=== PATIENT | male | born 1955 | race Caucasian/White ===

== ENCOUNTER → 2017-07-10 13:17 | Outpatient (CLI) | payer OTHER, MEDICARE, SELFPAY ==
[2017-06-26 17:31] VITALS: BMI 21.9
--- NOTE | 2017-07-10 13:19 | RAD_ITS ---
STUDY: X-RAY - RIGHT CLAVICLE REASON FOR EXAM: Male, 61 years old. Postop TECHNIQUE: 2 view(s) of the clavicle. COMPARISON: X-rays of the right clavicle on June 26, 2017. FINDINGS: Again noted is a fracture of the distal end of the clavicle, stable in alignment since last examination. The patient is status post reconstruction of the coracoclavicular ligaments Normal acromioclavicular articulation. Normal visualized sternoclavicular articulation. Normal visualized pulmonary apex. RAD/Clavicle IMPRESSION: Healing fracture of the distal clavicle, stable since last examination. Status post reconstruction of the coracoclavicular ligaments Electronically Signed: Oscar Rivas MD, FACR at 14:48 EST , Service support ,
== END ==
PROVIDERS: Family Provider Family Medicine; PCP Family Medicine; Visit Provider Orthopaedic Surgery
DX: S42.031A Displaced fracture of lateral end of right clavicle, initial encounter for closed fracture (principal); X58.XXXA Exposure to other specified factors, initial encounter; Y93.9 Activity, unspecified; Y92.9 Unspecified place or not applicable; Y99.9 Unspecified external cause status
CPT/HCPCS: 73000

== ENCOUNTER → 2017-08-11 12:44 | Outpatient (CLI) | payer OTHER, MEDICARE, SELFPAY ==
--- NOTE | 2017-08-11 12:48 | RAD_ITS ---
STUDY: X-RAY - RIGHT CLAVICLE REASON FOR EXAM: Fracture. TECHNIQUE: 2 view(s) of the clavicle. COMPARISON: Radiographs 07/10/2017 and 06/26/2017. FINDINGS: There is a healing fracture of the distal clavicle without interval change. There are postoperative changes from coracoclavicular ligament reconstruction. There is no widening of the acromioclavicular articulation. Normal visualized sternoclavicular articulation. Normal visualized pulmonary apex. RAD/Clavicle IMPRESSION: Healing fracture of the distal clavicle without interval change. Electronically Signed: Archie Johns MD at 13:24 EST Tel , Service support ,
== END ==
PROVIDERS: Family Provider Family Medicine; PCP Family Medicine; Visit Provider Orthopaedic Surgery
DX: S42.031A Displaced fracture of lateral end of right clavicle, initial encounter for closed fracture (principal); X58.XXXA Exposure to other specified factors, initial encounter; Y93.9 Activity, unspecified; Y92.9 Unspecified place or not applicable; Y99.9 Unspecified external cause status
CPT/HCPCS: 73000

== ENCOUNTER 2017-09-17 08:00 | Outpatient (RCR) | payer MEDICARE, SELFPAY ==
--- NOTE | 2017-08-14 11:20 | HP.PTEVAL_ITS ---
Patient's Visit Information AMERICO ARRIOLA is a 61 year old M referred to Physical Therapy by DO HAYLIE Piedra with a diagnosis of R distal clavical fx with coracoclavicular ligament reconstruction. Date of Evaluation: 08/14/17 Physical Therapist: Román Coreas - Visit Plan Frequency: 2-3x /Week Duration: 6-8 weeks Plan: Start with AAROM activities. Progress via protocol. May use modalities if needed PRN. - Subjective Subjective: Pt. is here today for inital evaluation with diagnosis of R distal clavical fx with coracoclavicular ligament reconstruction. Pt. also has a history of L sided stroke with R sided weakness. Pt. has surgery on 06/16/17. Pt. reports hurting his arm when his dog pulled him over at the park. He trialed conservative treatment, but ultimately had to have surgery. Pt. reports no pain currently and has been outs of sleep for ~ 1 weeks at this point. Pt. reports being very active in gym with cardio fitness current, goes x6 per week. Pt. reports being compliant with pendulums and arm exercises at home. He did divulge lifting 30lbs over his head with his R arm yesterday, I discouraged him to doing so right now. Pt. reports no issues with sleeping and no issues with most ADLs, I just feels weak now. Pt. is pleased with progress thus far. Pt is hopeful to get back to all previous activies with issues. - Pain R shoulder Pain Intensity (Out of 10): 0 Pain Intensity Range: 0, 2 - Objective POSTURE: Pt. stands without sling, normal shoulder height, no step off on R side. Pt. has R arm in slight gaurded positioning. Pt has FH posture with increased thoracic kyphosis. PALPATION: Pt. has well healing incision. Pt. has no signs of infection. Pt. has mild tenderness along distal clavicle and near coracoid process. No visible edema noted. NEUROLOGICAL: Pt. has decreased sensation to light touch of R UE, Pt. reports present since stroke, no changes in sensation since surgery. Normal on LUE. Pt. has 2+ biceps and triceps DTR bilaterally. ROM: AROM- L shoulder- flexion 180deg, abd 180deg, functional ER C6, functional IR T10. R shoulder- AROM- flexion 170deg, abd 168deg, functional ER C4 (abherrant motion), Functional IR L5 (mild increase in symptoms). MMT- LUE- wrist 5/5 throughout; elbow- 5/5 throughout; shoulder 5/5 throughout. RUE - wrist 4/5 increased difficulty with finger extension and wrist extension; elbow 5/5 throughout; shoulder- flexion 4/5, abd 4/5, ext 4/5, ER 4/5, IR 5/5. - Goals Goal 1:: Pt. to be I with HEP. Goal Time Frame: 4-6 Weeks Goal 2:: Pt. to have increased R shoulder ROM symmetrical to L without reports of increased symptoms. Goal Time Frame: 4-6 Weeks Goal 3:: Pt. to have increased R shoulder strength by 1/2 grade throughout effected musculature allowing for increased stability of R shoulder with all ADLs and recreational activities. Goal Time Frame: 6-8 Weeks Goal 4:: Pt. to resume all gym related exercises without increase in symptoms of R shoulder. Goal Time Frame: 6-8 Weeks Goal 5:: Pt. report no issues with all ADLs and house work activities. - Rehabilitation Potential Physical Therapy Diagnosis: Pt. presents with R distal clavical fx with coraco clavicular ligament reconstruction with subsequent R shoulder hypomobility, and decreased R shoulder strength. Pt. would benefit from PT to increase AROM, PROM and progress to strengthening of RUE allowing for increased ability to complete all ADLs and gym related activities without issues. - Anticipated Interventions Patient/Client Instruction: Educate patient on: Condition, Plan of Care, Risk Factors, Benefits of Fitness Program For the Purpose of:: To foster healthy habits, To improve decision making, To facilitate caregiver knowledge, To improve self management, To prevent re-injury , To improve ability to perform tasks related to life management, To improve tolerance to ADL's Therapeutic Exercise to Include: Strength training, Power training, Postural training, Flexibilty training, Passive ROM, Active ROM, Dynamic Lumbar Stabilization, Scapular Strength/Stabilization For the Purpose of:: To decrease pain, To increase ROM, To improve nutrient delivery to tissue, To increase oxygenation perfusion, To improve muscle performance and motor function, To improve ability to perform ADL's, To increase tolerance to activity/condition/position, To improve performance and independence with ADL's, To improve ability of physical actions for home/ community/work/leisure, To improve gait and locomotor functions, To decrease soft tissue restriction, To increase flexibility/ROM Manual Therapy Techniques to Include: Mobilization, Passive ROM, Soft tissue mobilization For the Purpose of:: To decrease pain, To increase ROM, To improve nutrient delivery to tissue, To increase oxygenation perfusion, To improve muscle performance and motor function IF ES: Yes Cryotherapy (ice pack, ice massage): Yes Thermo therapy (hot pack): Yes For the Purpose of:: To decrease pain, To decrease swelling/inflammation, To increase ROM Thank you for the opportunity to evaluate your patient. For Medicare and Medicare HMO plans, please review the plan of care and approve it. It will need to be FAXED BACK to us at [phone] for Medicare purposes. Please let me know if there are questions or concerns regarding this plan of care. Physician Signature: Date:
--- NOTE | 2017-08-14 13:50 | HP.OTEVAL_ITS ---
Patient's Visit Information AMERICO ARRIOLA is a 61 year old M, referred to Occupational Therapy by Pranay Cottrell DO,MTNILA, with a diagnosis of Hx of R side stroke. Date of Evaluation: 08/14/17 Occupational Therapist: Fang Valdes - Subjective Subjective: Pt seen for initial occupational therapy evaluation for increasing R under ground miner strength and coordination to assist with BADLs/IADLs/hobbies. Pt had fall on ice while walking dog and had fx R distal clavical with coracoclavicular ligament reconstruction and had a stroke L side affecting his R side 14 yrs ago. Pt states he has decreased R hand under ground miner strength. Pt lives with his spouse and is independent with BADLs/IADLs other than his spouse has to assist with grooming/hygiene tasks of clipping his finger nails secondary to increased tone and decreased strength and coordiantion of R hand. - Objective Objective/Observation: Pt demo decreased R under ground miner strength and coordination. - ROM ROM Comments: Pt able to make composite fist R hand. Pt demo decreased finger extension MP joints middle finger -50, ring finger -55 R hand. - Strength Receiver: R 20#, L 90# Tripod Pinch: R 12#, L 22# Strength Comments: Pt demo decreased R hand strength - Edema Other: No edema noted - DASH-Disabilities of Arm, Shoulder& Hand DASH Sum: 98 - Goals Goal:: Pt will progress with R hand under ground miner strength by 50# to assist with functional living skills and hobbies. Goal:: Pt will progress with R hand coordination tasks to assist with all grooming/hygiene skills with minimal assist. Goal:: pt will be educated on R hand strengthening HEP with good understanding and demo 100%x. - Rehabilitation General Assessment: Pt demo decreased R hand under ground miner strength and coordination indicating a need for skilled occupational therapy services to increase R hand strength and coordination to assist w/ hobbies and BADLs/IADLs. Rehabilitation Potential: Good - Anticipated Interventions Anticipated Interventions: A/AAROM/PROM, Strengthening, Modalities, Fine Motor Coord/Manish, ADL Training, Home Program - Visit Plan Frequency: 1x/Week Duration: 4 Weeks General Plan: Increase R hand under ground miner strength and coordination, educate on R UE HEP to increase independence with hobbies, ADLS/IADLS. TEXT: Thank you for the opportunity to evaluate your patient. For Medicare and Medicare HMO plans, please review the plan of care and approve it. It will need to be FAXED BACK to us at [phone] for Medicare purposes. Please let me know if there are questions or concerns regarding this plan of care. Physician Signature: Date:
--- NOTE | 2017-09-15 16:34 | HP.PTREVAL_ITS ---
Pranay Cottrell DO, It has been my pleasure to treat AMERICO ARRIOLA over the last 12 visits for R distal clavical fx with coracoclavicular ligament reconstruction. Please see the progress note below for an update on the physical therapy plan of care! Subjective: Pt. reports 'I have been doing pretty well. Pt. is to see his physician next week. Pt. reports being HEP compliant. No pain currently. Objective/Function: AROM- R shoulder- flexion 155deg abherrant motion- pt. reports was present prior to surgery. ABD 140deg abherrant motion. Pt. reports no pain with all testing. Pt. continues to progress with PROM, AROM and stability exercises. He has progressed to quadriped exercises for R shoulder stability without adverse reaction. Pt. does report some shoulder crepitus with rotational motions. Pt. has no pain with all activities. Pt. is back to all gym exercises, but told to scale to light wt's. Pt. to follow up with physician next week. Plan Plan: Start with AAROM activities. Progress via protocol. May use modalities if needed PRN. Goals Goal 1:: Pt. to be I with HEP. Goal Time Frame: 4-6 Weeks Goal Progress: Goal Met Goal 2:: Pt. to have increased R shoulder ROM symmetrical to L without reports of increased symptoms. Goal Time Frame: 4-6 Weeks Goal 3:: Pt. to have increased R shoulder strength by 1/2 grade throughout effected musculature allowing for increased stability of R shoulder with all ADLs and recreational activities. Goal Time Frame: 6-8 Weeks Goal Progress: Progressing Goal 4:: Pt. to resume all gym related exercises without increase in symptoms of R shoulder. Goal Time Frame: 6-8 Weeks Goal Progress: Progressing Goal 5:: Pt. report no issues with all ADLs and house work activities. Goal Progress: Goal Met Anticipated Interventions Patient/Client Instruction: Educate patient on: Condition, Plan of Care, Risk Factors, Benefits of Fitness Program For the Purpose of:: To foster healthy habits, To improve decision making, To facilitate caregiver knowledge, To improve self management, To prevent re-injury , To improve ability to perform tasks related to life management, To improve tolerance to ADL's Therapeutic Exercise to Include: Strength training, Power training, Postural training, Flexibilty training, Passive ROM, Active ROM, Dynamic Lumbar Stabilization, Scapular Strength/Stabilization For the Purpose of:: To decrease pain, To increase ROM, To improve nutrient delivery to tissue, To increase oxygenation perfusion, To improve muscle performance and motor function, To improve ability to perform ADL's, To increase tolerance to activity/condition/position, To improve performance and independence with ADL's, To improve ability of physical actions for home/ community/work/leisure, To improve gait and locomotor functions, To decrease soft tissue restriction, To increase flexibility/ROM Manual Therapy Techniques to Include: Mobilization, Passive ROM, Soft tissue mobilization For the Purpose of:: To decrease pain, To increase ROM, To improve nutrient delivery to tissue, To increase oxygenation perfusion, To improve muscle performance and motor function IF ES: Yes Cryotherapy (ice pack, ice massage): Yes Thermo therapy (hot pack): Yes For the Purpose of:: To decrease pain, To decrease swelling/inflammation, To increase ROM Please do not hesitate to contact me at [phone] by phone or Fax: if you have questions or concerns regarding this new plan of care! Sincerely, Román Coreas
--- NOTE | 2017-10-15 13:14 | HP.OT.NRP ---
HP - Discharge Summary - Patient Information AMERICO ARRIOLA was seen in my office for initial evaluation on 08/14/17. The following Plan of Care was established for this patient: Initial Frequency: 1x/Week Initial Duration: 4 Weeks Plan: cont to decrease tone R hand and increase cone chocolate dipper strength - Anticipated Interventions Anticipated Interventions: A/AAROM/PROM, Strengthening, Modalities, Fine Motor Coord/Manish, ADL Training, Home Program This patient was last seen in our office 09/17/17. Pertinent comments regarding their Occupational therapy will appear below: Pt to d/c from OT services, non returning pt. Pt was working on increasing cone chocolate dipper strength R hand with prolonged stretching and weightbearing activities of R hand to decrease tone. Education on exercises, exercise equipment and stretches to complete at home. At this point I will be discontinuing this patient from occupational therapy. I would be happy to see this patient again in the future if found appropriate by the physician. Thank you! Fang Valdes
--- NOTE | 2017-10-15 14:19 | HP.OT.NRP ---
HP - Discharge Summary - Patient Information AMERICO ARRIOLA was seen in my office for initial evaluation on 08/14/17. 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 Pertinent comments regarding their Occupational therapy will appear below: Pt to d/c from OT services, non returning pt. 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 Education on exercises, digiflex hand strengthener for R hand and stretches to complete at home. At this point I will be discontinuing this patient from occupational therapy. I would be happy to see this patient again in the future if found appropriate by the physician. Thank you! Fang Valdes
--- NOTE | 2018-01-27 13:51 | HP.PT.NRP ---
HP - Discharge Summary (1) - Patient Information AMERICO ARRIOLA was seen in my office for initial evaluation on 08/14/17. The following Plan of Care was established for this patient: Initial Frequency: 2-3x /Week Initial Duration: 6-8 weeks - Anticipated Interventions Patient/Client Instruction: Educate patient on: Condition, Plan of Care, Risk Factors, Benefits of Fitness Program For the Purpose of:: To foster healthy habits, To improve decision making, To facilitate caregiver knowledge, To improve self management, To prevent re-injury, To improve ability to perform tasks related to life management, To improve tolerance to ADL's Therapeutic Exercise to Include: Strength training, Power training, Postural training, Flexibilty training, Passive ROM, Active ROM, Dynamic Lumbar Stabilization, Scapular Strength/Stabilization For the Purpose of:: To decrease pain, To increase ROM, To improve nutrient delivery to tissue, To increase oxygenation perfusion, To improve muscle performance and motor function, To improve ability to perform ADL's, To increase tolerance to activity/condition/position, To improve performance and independence with ADL's, To improve ability of physical actions for home/community/work/leisure, To improve gait and locomotor functions, To decrease soft tissue restriction, To increase flexibility/ROM Manual Therapy Techniques to Include: Mobilization, Passive ROM, Soft tissue mobilization For the Purpose of:: To decrease pain, To increase ROM, To improve nutrient delivery to tissue, To increase oxygenation perfusion, To improve muscle performance and motor function IF ES: Yes Cryotherapy (ice pack, ice massage): Yes Thermo therapy (hot pack): Yes For the Purpose of:: To decrease pain, To decrease swelling/inflammation, To increase ROM This patient was last seen in our office 09/12/17. Pertinent comments regarding their Physical therapy will appear below: Pt. was seen in PT for his R distal clavicle reconstruction. Pt. progressed well with PT. At our last visit he was doing very well. He was to continue with exercises on his own and follow up with PT if needed. Pt. has not returned to PT in ~4 months and will be DC from PT at this point in time. At this point I will be discontinuing this patient from physical therapy. I would be happy to see this patient again in the future if found appropriate by the physician. Thank you! Román Coreas
== END 2017-09-17 19:00 | disposition home or self-care (01) ==
LOC: OT 08:00
PROVIDERS: Family Provider Family Medicine; PCP Family Medicine; Visit Provider Orthopaedic Surgery
DX: S42.031D Displaced fracture of lateral end of right clavicle, subsequent encounter for fracture with routine healing (principal); Z86.73 Personal history of transient ischemic attack (TIA), and cerebral infarction without residual deficits
CPT/HCPCS: 97110; 97140; 97161; 97165; 97168; G8987; G8988

== ENCOUNTER → 2017-09-22 13:00 | Outpatient (CLI) | payer MEDICARE, SELFPAY ==
--- NOTE | 2017-09-22 13:02 | RAD_ITS ---
STUDY: X-RAY - RIGHT CLAVICLE REASON FOR EXAM: Male, 62 years old. Fracture TECHNIQUE: 2 view(s) of the clavicle. COMPARISON: August 11, 2017 FINDINGS: Stable postoperative change of the distal clavicle with partial healing of fracture adjacent to the acromioclavicular articulation. The fracture line remains apparent. Normal visualized sternoclavicular articulation. Normal visualized pulmonary apex. RAD/Clavicle IMPRESSION: Stable incompletely united fracture of distal clavicle. Electronically Signed: Igor Walker MD at 17:24 EDT , Service support ,
== END ==
PROVIDERS: Family Provider Family Medicine; PCP Family Medicine; Visit Provider Orthopaedic Surgery
DX: S42.031A Displaced fracture of lateral end of right clavicle, initial encounter for closed fracture (principal); X58.XXXA Exposure to other specified factors, initial encounter; Y93.9 Activity, unspecified; Y92.9 Unspecified place or not applicable; Y99.9 Unspecified external cause status
CPT/HCPCS: 73000

== ENCOUNTER → 2017-11-27 13:52 | Outpatient (CLI) | payer MEDICARE, SELFPAY ==
[2017-11-27 16:29] LABS: PSA,Total - Annual Screen 0.66 ng/mL (0.00-4.00)
== END ==
PROVIDERS: Family Provider Family Medicine; PCP Family Medicine; Visit Provider Urology
DX: Z12.5 Encounter for screening for malignant neoplasm of prostate (principal)
CPT/HCPCS: 36415; 84153; G0103

== ENCOUNTER → 2018-07-27 07:29 | Outpatient (CLI) | payer MEDICARE, SELFPAY ==
[2018-07-27 08:53] LABS: Absolute Lymphocyte Count 0.89 X10^3/ul (0.83-4.51); Absolute Neutrophil Count 1.9 X10^3/uL (2.0-7.7); Basophil# 0.03 X10^3/uL; Basophil% 0.9 % (0-1); Eosinophil# 0.14 X10^3/uL; Eosinophils% 4.3 % (0-5); Hemoglobin 12.8 g/dl (13.0-16.5); Lymphocyte # 0.89 X10^3/ul (4.0); Lymphocyte % 27.5 % (19-41); Mean Corp Hgb Conc 32.8 g/gl (32-36); Mean Corpuscular Volume 100.5 fL (80-94); Mean Platelet Vol. 9.7 fl (6.2-12.0); Monocyte% 9.3 % (0-10); Neutrophil # 1.88 X10^3/uL (2.7-7.7); Platelet Count 208 K/mm3 (150-450); RBC Distribution Width CV 12.8 % (11.6-14.6); RBC Distribution Width SD 45.8 fl (35.1-43.9); Red Blood Count 3.88 M/mm3 (4.6-6.2); White Blood Count 3.2 K/mm3 (4.4-11.0)
[2018-07-27 09:03] LABS: POSITIVE COUNT NO; POSITIVE DIFFERENTIAL NO; POSITIVE MORPHOLOGY NO
[2018-07-27 09:13] LABS: ALB/GLOB Ratio 1.3 RATIO (0.9-2.4); AST(SGOT) 24 U/L (15-37); Alanine Aminotransfer ALT/SGPT 29 U/L (16-61); Albumin, Serum 3.8 g/dL (3.2-5.0); Alkaline Phosphatase 72 U/L (45-117); Anion Gap 3 (5-15); BUN 23 mg/dL (7-18); BUN/Creat Ratio 29.8 RATIO (10-20); Calcium,Total 8.4 mg/dL (8.5-10.1); Chloride 110 mmol/L (98-107); Cholesterol 128 mg/dL (200); Creatinine, Serum 0.77 mg/dL (0.70-1.30); EST Glomerular Filtration Rate 108 mL/min (>60); Est Glom Filt Rate - Afr Amer 131 mL/min (>60); Globulin 2.9 g/dL (2.2-4.2); Glucose 86 mg/dL (74-106); High Density Lipoprotein 62 mg/dL; Potassium 4.5 mmol/L (3.5-5.1); Protein, Total 6.7 g/dL (6.4-8.2); Sodium Level 143 mmol/L (136-145); Triglycerides 44 mg/dL; Very Low Density Lipoprotein 9 mg/dL (5-40)
== END ==
PROVIDERS: Family Provider Family Medicine; PCP Family Medicine; Referring Provider Nurse Practitioner Family; Visit Provider Nurse Practitioner Family
DX: Z00.00 Encounter for general adult medical examination without abnormal findings (principal)
CPT/HCPCS: 36415; 80053; 80061; 85025

== ENCOUNTER → 2019-04-05 | Outpatient (CLI) | payer MEDICARE, SELFPAY ==
[2019-04-05 12:59] LABS: PSA,Total- Diagnostic 0.85 ng/mL (0.0-4.0)
== END | disposition home or self-care (01) ==
PROVIDERS: Family Provider Family Medicine; PCP Family Medicine; Referring Provider Urology; Visit Provider Urology
DX: C61 Malignant neoplasm of prostate (principal)
CPT/HCPCS: 36415; 84153